=== PATIENT | female | born 1955 | race Caucasian/White ===

== ENCOUNTER 2018-02-08 01:33 | Emergency (ER) | payer MEDICARE ==
[~2018-02-08] VITALS: Ht 167.6 cm; Wt 64.0 kg
[2018-02-08] MEDS ORDERED: KETOROLAC 60MG/2ML VIAL IM ONE (03:45)
[2018-02-08] MEDS ORDERED: CYCLOBENZAPRINE 10MG TABLET PO ONE (03:45)
[2018-02-08 04:05] VITALS: BP 140/54
== END 2018-02-08 04:45 | disposition home or self-care (01) ==
LOC: ER 01:33
DX: M54.5 Low back pain (principal); E11.9 Type 2 diabetes mellitus without complications; I10 Essential (primary) hypertension; Y04.0XXA Assault by unarmed brawl or fight, initial encounter; Y93.89 Activity, other specified; Y92.89 Other specified places as the place of occurrence of the external cause; Y99.8 Other external cause status
CPT/HCPCS: 96372; 99283; J1885

== ENCOUNTER 2023-03-04 06:45 | Emergency (ER) | payer MEDICARE, OTHER ==
[~2023-03-04] VITALS: Ht 157.5 cm; Wt 55.0 kg
[2023-03-04 06:46] VITALS: O2SAT 99
[2023-03-04] MEDS ORDERED: ONDANSETRON HCL 4MG/2ML INJ IV STA (06:53)
[2023-03-04 07:41] LABS: CHLORIDE 113 mEq/L (98-107)
[2023-03-04 07:49] LABS: BASOPHILS % 1.3 % (0.0-2.0); EOSINOPHILS % 2.9 % (0.0-5.0); HEMATOCRIT. 29.3 % (36.0-48.0); HEMOGLOBIN. 9.8 g/dL (12.0-16.0); LYMPHOCYTES % 20.3 % (20.0-50.0); MEAN CORPUSCULAR HEMOGLOBIN 26.9 pg (28.0-32.0); MEAN CORPUSCULAR VOLUME 80.1 fL (81.0-99.0); MEAN PLATELET VOLUME 8.2 fl (7.4-10.4); MONOCYTES % 5.2 % (2.0-8.0); NEUTROPHILS % 70.3 % (40.0-76.0); PLATELET 334 x1000/uL (130-400); RED BLOOD CELL COUNT 3.66 mill/uL (4.2-5.4)
[2023-03-04 11:18] VITALS: BP 134/70; PULSE 82; RESP 16; TEMP 98.5
== END 2023-03-04 11:20 | disposition home or self-care (01) ==
LOC: ER 06:45
DX: R11.2 Nausea with vomiting, unspecified (principal); E11.9 Type 2 diabetes mellitus without complications; I10 Essential (primary) hypertension
CPT/HCPCS: 99283; 96374; 80053; 82962; 83690; 85025; 86850; 86900; 86901; 36415; J2405